=== PATIENT | male | born 2000 | race Asian ===

== ENCOUNTER 2020-07-13 18:37 | Emergency (ER) | payer BC ==
[~2020-07-13] VITALS: Ht 185.4 cm; Wt 124.7 kg
[2020-07-13 19:32] LABS: PLATELET COUNT 207 K/uL (142-355)
[2020-07-13 19:45] LABS: POTASSIUM 4.2 mmol/L (3.6-5.2)
[2020-07-13 19:51] LABS: PARTIAL THROMBOPLASTIN TIME 20.9 SECONDS (24.5-33.6)
[2020-07-13 21:15] VITALS: BP 150/72; TEMP 98.8
== END 2020-07-13 21:20 | disposition short-term general hospital (02) ==
LOC: ED 18:37
PROVIDERS: Hospitalist
DX: N50.811 Right testicular pain (principal)
CPT/HCPCS: 36415; 80048; 81000; 85027; 85610; 85730; 96372; 99285; J1885